=== PATIENT | male | born 1980 | race Caucasian/White ===

== ENCOUNTER → 2017-02-03 | Outpatient (CLI) | payer OTHER ==
[~2017-02-03] MED LIST: APRISO0.375 GM PO; DELTASONE20 MG PO; IMURAN50 MG PO; NORCO 5-325 TA1 EACH PO; RYTHMOL150 MG PO; THERA-VITE W/ B1 TAB PO; TYLENOL EXTRA500 MG PO; ZYRTEC-D TABLE1 EACH PO
== END | disposition disaster alternative care site (69) ==
LOC: LGSMG 16:59
DX: K50.90 Crohn's disease, unspecified, without complications (principal)

== ENCOUNTER 2017-02-04 13:49 | Inpatient (IN) | payer OTHER ==
[~2017-02-04] VITALS: Ht 182.9 cm; Wt 73.3 kg
--- NOTE | ~2017-02-04 | CON ---
PATIENT'S NAME: MURRAY DIAZ [facility] AGE: 36 Y [address] ROOM: G6319 [place], [place] [address] LOCATION: GPCU ADMIT DATE: 02/04/2017 Consultation DISCHARGE DATE: FAMILY PHYSICIAN: Aquiles Fuller MD ATTENDING PHYSICIAN: Jake Olsen REFERRING PHYSICIAN: Jake Olsen MD REASON FOR CONSULTATION: Paroxysmal atrial fibrillation. HISTORY OF PRESENT ILLNESS: This is a 36-year-old male who is post laparotomy with ileocolectomy and diverting loop ileostomy with intraabdominal abscess and free air found on CT. This is a 36-year-old male who is admitted to the [facility] on January 18, 2017. At that time, he had an acute onset of nausea. He was found to have partial obstruction with concerns for terminal ileitis and Crohn disease. He had a colonoscopy that revealed terminal ileitis, but his bowels began working, he was on steroids. He reports that his pain mildly improved, but it continued. He then followed up for a second opinion regarding Crohn disease and soreness in his abdomen. He had increasing pain that hurt with any type of movement. His white blood cell count was elevated and abdomen became very rigid. He then underwent a CT scan showing an abdominal abscess and free air. Therefore, a surgical intervention was warranted for drainage of the abscess and then the surgery that was described above. On 02/05, he was up and around, doing fairly well. He was taking ice chips and hard candy. Late in the afternoon, he noticed that his heart rate had jumped up and he could feel some palpitations. He did not have any shortness of breath with this. He denied lightheadedness or dizziness, but on assessment, he was found to have atrial fibrillation with rapid ventricular response. He was then transferred to PCU. He was given Lopressor, started on a Cardizem infusion, as well as an amiodarone drip. At 2351 hours, on 02/06/2017, he converted back to a normal sinus rhythm and continues on the amiodarone infusion. He denies having any previous episodes of palpitations like this. He denies presyncope or syncopal episodes. No shortness of breath. No orthopnea, PND, and no problems with pedal edema. PAST MEDICAL HISTORY: Paroxysmal atrial fibrillation per HPI. PAST SURGICAL HISTORY: 02/05/2017, laparotomy with ileocolectomy and diverting loop ileostomy with intraabdominal abscess drainage. SOCIAL HISTORY: He drinks about 2 beers a day. He is a nonsmoker. He is not . He does not have children. PATIENT'S NAME: MURRAY DIAZ [facility] AGE: 36 Y [address] ROOM: [facility] [place] [address] LOCATION: GPCU ADMIT DATE: 02/04/2017 Consultation DISCHARGE DATE: FAMILY PHYSICIAN: Aquiles Fuller MD ATTENDING PHYSICIAN: Jake Olsen FAMILY HISTORY: Mother and father are alive and well. REVIEW OF SYSTEMS: HEENT: Head: No history of headache. Eyes: No blurred vision. Ears: No problems with hearing. Nose: No epistaxis or rhinorrhea. He currently has an NG down and complaining of severe sore throat. PULMONARY: No cough or hemoptysis. GASTROINTESTINAL: Per HPI. No problems with melena. GENITOURINARY: Negative for urinary frequency or urgency. MUSCULOSKELETAL: No complaints of arthralgias or myalgias. NEUROLOGIC: Denies numbness or tingling or feelings of off balance. PHYSICAL EXAMINATION: VITAL SIGNS: He is 6 feet tall, weight is 174 pounds with a BMI of 23.6. He has an NG down the right nares. He also has O2 on. SKIN: Warm, dry, and pink. NECK: Soft and supple. There is no lymphadenopathy. CV: Regular now with a normal S1 and S2. There is no murmur, rub, or click. LUNGS: Lung sounds are clear anteriorly and posteriorly, but diminished. ABDOMEN: Slightly distended. Very hypoactive bowel sounds. He does have a loop ileostomy and dressings are dry and intact. EXTREMITIES: No peripheral edema. Distal pulses are 2+/4. NEUROLOGIC: His mentation is pleasant and cooperative. LABORATORY DATA: White count 16.7, hemoglobin 11.3, hematocrit 35.3, and his platelets 168. Glucose 131, BUN 18, creatinine 0.9, sodium 135, and potassium 4.3. ESR was 38. His UA showed no infection. ASSESSMENT: Paroxysmal atrial fibrillation. We are going to continue him on the amiodarone infusion. Check an echocardiogram as well as a TSH and further recommendations will be forthcoming. The assessment and plan, history of present illness, and physical exam are per Dr. Sylvester. We would like to thank Dr. Jake Olsen and the hospitalist for allowing us to participate in the patient's care. JENNIFFER THOMAS APRN FOR SHAYY SYLVESTER MD PATIENT'S NAME: MURRAY DIAZ [facility] AGE: 36 Y [address] ROOM: [place] [address] [facility] AD[facility] DATE: 02/04/2017 Consultation DISCHARGE DATE: FAMILY PHYSICIAN: Aquiles Fuller MD ATTENDING PHYSICIAN: Jake OlsenP/letitial /[id number] d: 02/07/171999 t: 02/23/17 1011, CONSULTATION REPORT
--- NOTE | ~2017-02-04 | ER ---
PATIENT'S NAME: MURRAY DIAZ [facility] AGE: 36 Y [address] ROOM: [address] [address] LOCATION: [facility] ADMIT DATE: 02/04/2017 ER/Outpatient Report DISCHARGE DATE: FAMILY PHYSICIAN: PHYSICIAN, UNKNOWN ATTENDING PHYSICIAN: Jake Olsen Time of Patient's Arrival: 1349 hours. Time of Patient's Evaluation: 1349 hours. CHIEF COMPLAINT: Abdominal pain. HISTORY OF PRESENT ILLNESS: This is a 36-year-old male who presents to the ER via [facility] with severe abdominal pain. The patient states he has been having abdominal pain since December. He was evaluated at [facility] and was ultimately hospitalized there at the end of December and was diagnosed with Crohn's. He states that they did CAT scans there and he did have a colonoscopy done by Dr. Taylor. He states that he did not care for him, so he decided to be seen by Kaity Carr and he did see her yesterday. He states that she did have some blood work done yesterday and they started him on some new medication, called Apriso. He states he has been on prednisone since his admission to the hospital and he just decreased his prednisone down to 50 mg a day on Wednesday. He states his abdominal pain started to worsen yesterday and they were waiting prior authorization for another CAT scan to be done. He states he was at work today and his pain got so severe, he felt like he was going to pass out. He does not believe he has been running any fevers at home. He feels nauseated, he has had no vomiting. He did have a bowel movement today, that was normal. He has had no troubles with urination. He states he has no has no other history other than this recent Crohn's diagnosis. ALLERGIES: NO KNOWN ALLERGIES. MEDICATIONS: Please see medication list in nurse's notes. PAST MEDICAL HISTORY: Recent diagnosis of Crohn disease and recent hospitalization at [facility]. SOCIAL HISTORY: Drinks alcohol, a couple of beers a day. Denies any smoking use. REVIEW OF SYSTEMS: All systems were reviewed and were negative with the exception of those PATIENT'S NAME: MURRAY DIAZ [facility] AGE: 36 Y [address] ROOM: [address]32[address] [place], [place] [address] LOCATION: [facility] ADMIT DATE: 02/04/2017 ER/Outpatient Report DISCHARGE DATE: FAMILY PHYSICIAN: PHYSICIAN, UNKNOWN ATTENDING PHYSICIAN: Jake Olsen discussed in the HPI. PHYSICAL EXAMINATION: VITAL SIGNS: Height 6 feet stated, weight 78.9 kg taken, blood pressure is 154/105, pulse 103, respirations 18, temperature 99.5 degrees tympanically, and saturations 93% on room air. [place] Coma Score is 15. GENERAL: Alert, anxious-appearing male, in moderate to severe distress. HEENT: Head: Normocephalic. He does display moist mucous membranes. Eyes: Pupils are equal and reactive to light. NECK: Supple. No lymphadenopathy. LUNGS: Clear auscultation bilaterally. HEART: Slightly tachycardic. Normal rhythm. ABDOMEN: Rigid. He guards in all 4 quadrants of his abdomen with palpation. He has hypoactive bowel sounds. EXTREMITIES: No clubbing or cyanosis. He has full range of motion of all limbs. SKIN: Warm, dry, and intact. NEUROLOGIC: Cranial nerves 2 through 12 grossly intact. Gait was not observed. LABORATORY DATA: CBC: White count is 22.8, hemoglobin is 15.7, platelets are 330, and ANC is 18.7. CMS: Sodium is 137, potassium is 4.4, glucose is 143, AST is 135, alkaline phosphatase is 91, ALT is 259, amylase is 49, lipase is 91, CRP is 22.50, and lactate is 2.10. Urinalysis: He does have bilirubin noted on urinalysis. UA micro: White blood cells 5-10, red blood cells 0-2, epithelial 0-2 bacteria negative. Two blood cultures were drawn. CT scan of the abdomen and pelvis was done with IV contrast and does show a large 7-cm abscess in the abdomen, this is reported to Radiology. IMPRESSION: 1. Abdominal pain secondary to abdominal abscess. 2. Recent diagnosis of Crohn disease. ASSESSMENT AND PLAN: I did discuss the patient's care with Dr. You. The patient did have an IV started en route from [facility]. We did continue the normal saline here in the emergency room that they started. We did give him 4 mg of Zofran and a total of 3 mg of Dilaudid here in the ER. Once his CAT scan diagnosis was made, we did start him on Zosyn 4.5 g IV, and we did call Dr. Jake Olsen who is on-call for surgery and he will be coming to evaluate the patient here in the emergency room. I also notified Kaity Carr APRN, as the patient was also in the emergency room. We will be turning the care over to Dr. Olsen at this time. The patient and the patient's understand and agree with care. PATIENT'S NAME: MURRAY DIAZ [facility] AGE: 36 Y [address] ROOM: [place] [address] LOCATION: [facility] ADMIT DATE: 02/04/2017 ER/Outpatient Report DISCHARGE DATE: FAMILY PHYSICIAN: PHYSICIAN, UNKNOWN ATTENDING PHYSICIAN: Jake Olsen JOSE DEL VALLE PA-C FOR DO MARYCRUZ HANCOCK/modl /[id number] d: 02/05/17 0139 t: 02/18/17 0644, OUTPATIENT REPORT
--- NOTE | ~2017-02-04 | HP ---
PATIENT'S NAME: BOY DIAZ [facility] AGE: 36 Y [address] ROOM: [facility] [place] [place] [address] LOCATION: [facility] [place] ADMIT DATE: 02/04/2017 History & Physical DISCHARGE DATE: FAMILY PHYSICIAN: PHYSICIAN, UNKNOWN ATTENDING PHYSICIAN: Jake Olsen DATE OF SERVICE: CHIEF COMPLAINT: Abdominal pain. HISTORY OF PRESENT ILLNESS: The patient is a 36-year-old male, who was admitted to [facility] on January 18, 2017. At that time, he had acute onset of pain with nausea. He was found to have a partial obstruction with concerns for terminal ileitis and Crohn disease, this was by CT. He had a colonoscopy that revealed terminal ileitis, but his bowels began working. He was on steroids. He had mild improvement in his pain. He went to [facility] yesterday to have second opinion regarding his Crohn disease, had soreness in his abdomen, but was able to function. He was having bowel movements. No nausea or vomiting. However, last night and early this morning, began having severe abdominal pain which has been worsening throughout the day. He says it hurts with any movement. He was seen, [place] [address], was felt that his abdomen was rigid. He did have a CT scan that does reveal intraabdominal abscess and thickened terminal ilium. There also is free air present. CURRENT MEDICATIONS: Prednisone. ALLERGIES: NONE. PAST SURGICAL HISTORY: None. SOCIAL HISTORY: He drinks two beers a day, nonsmoker. He is not . FAMILY HISTORY: No history of Crohn's or any other type of bowel cancers. There is some remote history of coronary artery disease. REVIEW OF SYSTEMS: Denies headache or vision change. No chest pain. No shortness of breath. No PATIENT'S NAME: BOY DIAZ [facility] AGE: 36 Y [address] ROOM: [facility] [place] [place], [place] [address] LOCATION: [facility] [place] ADMIT DATE: 02/04/2017 History & Physical DISCHARGE DATE: FAMILY PHYSICIAN: PHYSICIAN, UNKNOWN ATTENDING PHYSICIAN: Jake Olsen melena. No hematochezia. No hematuria or dysuria. No diarrhea. He has no history of diabetes or hyper or hypothyroidism. PHYSICAL EXAMINATION: HEENT: Head is normocephalic, atraumatic. Eyes are anicteric. NECK: Without lymphadenopathy. HEART: Regular rate and rhythm. LUNGS: Clear to auscultation bilaterally. ABDOMEN: Rigid with involuntary guarding and rebound tenderness. EXTREMITIES: Warm. No edema. NEUROLOGIC: Gross motor is intact. ASSESSMENT: 1. Peritonitis with abdominal abscess and perforation. 2. History of Crohn's. PLAN: Discussed the findings with Boy. Initially with a CT scan before I evaluated him, I thought this was likely more of a slowly developing abscess, however, he had this episode of acute pain. I suspect that he has had this abscess for several days, but has developed some further perforation as he does have an acute abdomen. Because of this, I feel like a surgical intervention is warranted. I discussed with him drainage of this abscess, possible ileal colectomy with anastomosis, risks with Crohn's being bleeding, infection, stricture formation, fistulas. We discussed injury to other viscera, wound infections, as well as other wound complications. He understands the risks of surgery and would like to proceed. Lab and CTs have all been reviewed. MD DENNY DELGADO/jackie /[id number] D: [id number] T: [id number] HISTORY & PHYSICAL
--- NOTE | ~2017-02-04 | DS ---
PATIENT'S NAME: MURRAY DIAZ [facility] AGE: 36 Y [address] ROOM: [address] [place], [place] [address] LOCATION: GPCU ADMIT DATE: 02/04/2017 Discharge Summary DISCHARGE DATE: 02/16/2017 FAMILY PHYSICIAN: Aquiles Fuller MD ATTENDING PHYSICIAN: Jake Olsen ADMITTING DIAGNOSES: 1. Perforated viscus with sepsis. 2. Crohn's disease. DISCHARGE DIAGNOSES: 1. Perforated viscus and abscess. 2. Crohn's disease. 3. Atrial fibrillation. HOSPITAL COURSE: The patient presented with an acute abdomen and was found to have perforated viscus abscess. He had carried a diagnosis of Crohn's disease. He had a laparotomy with ileocolectomy performed diverting loop ileostomy. He had a prolonged ileus. Postoperatively, he was maintained on IV antibiotics. Slowly, his ileus resolved, he did develop atrial fibrillation, which was controlled. Cardiology, Dr. Walsh was consulted in regarding this. He was able to be converted with amiodarone. Over the next week, he had slow improvement; ultimately, bowels began functioning, and we were able to slowly advance his diet. He did have a bout of fevers with increasing white count; however, with repeat CT, no abscess was present. Gastroenterology was also following the patient with plans for outpatient followup. He was able to be discharged to home. He had follow up with Dr. Walsh, Gastroenterology, as well as Dr. Olsen. MD RITIKA DELGADOO/modl /[id number] d: 02/19/17 0204 t: 03/04/17 0854, DISCHARGE SUMMARY
--- NOTE | ~2017-02-04 | CON ---
PATIENT'S NAME: MURRAY DIAZ [facility] AGE: 36 Y [address] ROOM: [place] [address] LOCATION: GPCU ADMIT DATE: 02/04/2017 Consultation DISCHARGE DATE: FAMILY PHYSICIAN: Aquiles Fuller MD ATTENDING PHYSICIAN: Jake Olsen CHIEF COMPLAINT: Atrial fibrillation with RVR. HISTORY OF PRESENT ILLNESS: The patient is a 36-year-old gentleman with recent history of Crohn disease with perforated viscus with abscess, who was initially admitted on February 04, 2017, for laparotomy with ileocolectomy with diverting loop ileostomy. The patient tolerated the surgery well. The patient was started on enteric antibiotic with Flagyl and Zosyn. However, the patient was noted to be with atrial fibrillation RVR today with heart rate in the 180s-190s. CT chest was acquired per primary team, which showed no PE. Upon our initial assessment of the patient, the patient was noted to have heart rate in the 180s-190s with labile blood pressure and systolic blood pressure in the low 100s. The patient was immediately transferred to PCU from Medical Surgical Unit. The patient was placed in PCU, and defibrillator pad was placed. The patient was placed on telemonitor. The patient was given 5 mg IV Lopressor with improvement in the heart rates in the 130s-140s. The patient was also given Cardizem 0.25 mg/kg bolus with adequate improvement of heart rate. The patient now started on Cardizem drip and amiodarone. The patient reports that he felt his heart racing this afternoon, and denies having these symptoms in the past. He currently complains of ongoing abdominal pain, especially around the surgical site. Denies chest pain, shortness of breath, fever, chills, productive cough, and dizziness. MEDICAL HISTORY: Crohn disease. SURGICAL HISTORY: Ileocolectomy with diverting loop ileostomy. FAMILY HISTORY: Reports that both his parents are healthy. 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 Rarely drinks alcohol. MEDICATIONS: Please see MAR. REVIEW OF SYSTEMS: PATIENT'S NAME: MURRAY DIAZ [facility] AGE: 36 Y [address] ROOM: [place] [address] LOCATION: GPCU ADMIT DATE: 02/04/2017 Consultation DISCHARGE DATE: FAMILY PHYSICIAN: Aquiles Fuller MD ATTENDING PHYSICIAN: Jake Olsen All systems have been reviewed and are negative, except for what I mentioned in the HPI. PHYSICAL EXAMINATION: VITAL SIGNS: Blood pressure 103/69, heart rate of 125, respiratory rate of 16, saturating 95% on 1 L. GENERAL: The patient lying on bed in no acute distress. HEAD: Normocephalic, atraumatic. EYES: Extraocular muscles intact. NOSE: No nasal discharge. MOUTH: Moist oral mucosa. CHEST: Clear to auscultation. HEART: Irregularly irregular. No murmurs, rubs, or gallops. ABDOMEN: Surgical dressing clean, dry, and intact. Mild tenderness to palpation, diffuse. Ileostomy bag present. SKIN: Warm to touch. MUSCULOSKELETAL: Range of motion intact. No obvious joint effusion. ELECTRIC CAR OPERATOR: The patient is alert and oriented x3. Motor and sensory grossly intact. IMAGING: Initial EKG shows atrial fibrillation with RVR with heart rate of 169. The second EKG, after Cardizem and Lopressor dose, shows atrial fibrillation with RVR with heart rate in 101 and some nonspecific repolarization changes. CT shows no PE. LABORATORY DATA: Lab shows white blood cell count of 16.7, hemoglobin of 11.3, and platelet of 168. Potassium 4.3, creatinine of 0.9, BUN of 18, blood glucose of 131, and CO2 of 28. ASSESSMENT AND PLAN: 1. Atrial fibrillation with rapid ventricular response. Etiology most likely secondary to recent history of surgery and infection. I suspect this to be transient. Initially, the patient had atrial fibrillation with RVR with heart rate in the 180s-190s with labile blood pressure and the patient was somewhat symptomatic; however, improved with Lopressor, IV fluids, and Cardizem. We will continue Cardizem drip. We will start amiodarone drip 150 mg IV bolus and start amiodarone drip per protocol. If the patient converts back to normal sinus rhythm, we will discontinue Cardizem drip. Case was discussed with Dr. Walsh. We will consult Cardiology. We will also get echocardiogram to further investigate for structural heart disease. The patient has XOCHILT-VASc score of zero. We PATIENT'S NAME: MURRAY DIAZ [facility] AGE: 36 Y [address] ROOM: [address] [place] [address] [facility] DATE: 02/04/2017 Consultation DISCHARGE DATE: FAMILY PHYSICIAN: Aquiles Fuller MD ATTENDING PHYSICIAN: Jake Olsen will hold anticoagulation. 2. Perforated viscus, secondary to Crohn disease. Treatment per primary team. 3. Crohn disease. Treatment per primary time. Greater than 30 minutes critical care was spent on the patient's care. The patient initially was in atrial fibrillation with RVR with heart rates in the 190s and labile blood pressure, and the patient was somewhat symptomatic. However, the patient now stabilized after Lopressor, Cardizem, and IV fluids. Discussed case with Dr. Grove with General Surgery and Dr. Walsh in Cardiology. Case was also discussed with the patient and . All questions were answered with satisfaction. MD PEDRITO MARTIN/jackie /[id number] d: 02/07/17 0028 t: 02/07/17 1234, CONSULTATION REPORT
--- NOTE | ~2017-02-04 | ECHO ---
Transthoracic Echocardiography Report (TTE) Demographics Patient Name MURRAY DIAZ Date of Study 02/07/2017 Patient Number [id number] Visit Number [id number] Date of 1980 Room Number G6319 Gender Male Number Age 36 year(s) Referring Alina Lopez Garment Manufacturer Samuel RVT, RDCS Physician MD [place] Physician Interpreting Nico Hinds MD Shoemaker Custom Physician Supervising Ordering Nico Hinds MD, MD/MLP Physician Nurse Stress Machine Repairer Conclusions Contractility Score Summary Normal Left Ventricular contractility was noted. Summary The estimated left ventricular ejection fraction is 65, 60-65%. Mild tricuspid regurgitation by color Doppler. There is mild pulmonary hypertension. The pulmonary pressure (RVSP) is 37 mmHg. Procedure Type of Study TTE procedure:2D Echocardiogram, M-Mode, Doppler , Color Doppler. Procedure Date Date: 02/07/2017 Start: 08:02 AM Study Location: Inpatient Portable Technical Quality: Adequate visualization Indications:Atrial fibrillation. Appropriate Use Criteria: 9 Patient Status: Routine HR: 73 bpm BP: 110/70 mmHg M-Mode/2D Measurements LV Diastolic Dimension: 4.3 cm LV Systolic Dimension: 2.13 cm LV Septum Diastolic: 0.96 cm LV PW Diastolic: 0.85 cm AO Root Dimension: 2.4 cm Cardiac Output: 4.68 l/min AV Cusp Separation: 1.8 cm RV Diastolic Dimension: 2.03 cm LA volume: 32 ml LVOT: 2 cm RV Base: 2.31 cm LVOT VTI: 20.4 cm RV Mid: 2.34 cm LV Stroke volume: 64.06 ml TAPSE: 2.6 cm TDI-S': 17.3 cm/s Doppler Measurements AV Peak Velocity: 1.21 m/s MV Peak E-Wave: 1.03 m/s AV Peak Gradient: 5.86 mmHg MV Peak A-Wave: 0.5 m/s AV Mean Gradient: 4 mmHg MV E/A Ratio: 2.06 LVOT Peak Velocity: 0.97 m/s MV P1/2t: 55 msec TR Gradient:33.64 mmHg PV Peak Velocity: 0.99 m/s Estimated RAP:3 mmHg PV Peak Gradient: 3.89 mmHg Estimated RVSP: 37 mmHg Estimated PASP: 36.64 mmHg E' Septal Velocity: 0.12 m/s A' Septal Velocity: 0.12 m/s E' Lateral Velocity: 0.17 m/s A' Lateral Velocity: 0.12 m/s Findings Left Ventricle Normal left ventricle size and function. Right Ventricle Normal right ventricle structure and function. Left Atrium Normal left atrial size. Right Atrium Normal right atrial size. Mitral Valve Normal mitral valve structure and function. Tricuspid Valve Mild tricuspid regurgitation by color Doppler. There is mild pulmonary hypertension. The pulmonary pressure (RVSP) is 37 mmHg. Pulmonic Valve Normal pulmonic valve structure and function. Pericardial Effusion No evidence of pericardial effusion. Pleural Effusion No evidence of pleural effusion. Contractility Score LV regional wall motion:(0-Non visualized 1-Normal 2-Hypokinesis 3-Akinesis 4-Dyskinesis 5-Aneurysm) Signature dtt: Guzman Walsh (cardio) dtd: 02/07/17 0802 Physician Self Edit
--- NOTE | ~2017-02-04 | OR ---
PATIENT'S NAME: M[facility]RAY DIAZ [facility] AGE: 36 Y [address] ROOM: [address] [address] [place] [facility] [place]: 02/04/2017 OR/Procedure Report DISCHARGE DATE: FAMILY PHYSICIAN: PHYSICIAN, UNKNOWN ATTENDING PHYSICIAN: Jake Oslen SURGEON: Jake Olsen MD PHONE REPRESENTATIVE: DATE OF PROCEDURE: 02/04/2017 PREOPERATIVE DIAGNOSIS: Perforated viscus with abscess. POSTOPERATIVE DIAGNOSIS: Perforated viscus with abscess. PROCEDURE PERFORMED: Laparotomy with ileocolectomy and diverting loop ileostomy. FINDINGS: The patient had purulent peritonitis with a very large abscess. The terminal ileum was very thickened. It was difficult to identify the exact source of perforation, however, the proximal to this area the bowel was relatively normal. The abscess also sat near the sigmoid colon. However, the sigmoid colon did not reveal perforation either. ESTIMATED BLOOD LOSS: 200 mL. COMPLICATIONS: None. INDICATIONS: The patient is a 36-year-old male, who recently had been admitted with partial bowel obstruction. He was treated with steroids. He also had a colonoscopy concerning for terminal ileitis. Biopsies of this had been obtained. He had had worsening pain, but then this became acute. Today, he was found to have free air and signs of peritonitis. Because of this, we discussed exploration with the patient, the risks, benefits, and alternatives, which include bleeding, infection, abscess formation, potential resection, and potential ostomy. He understood the risks and elected to proceed. DESCRIPTION OF PROCEDURE: The patient was taken into the operating room. He was supine, given IV sedation and subsequently intubated. His abdomen was prepped with ChloraPrep, and sterilely draped. Local anesthetic was infiltrated superior to the umbilicus. A vertical incision was created. The abdomen was elevated. A Veress needle was inserted. Pneumoperitoneum was induced. Following this, an 11-mm trocar was inserted, followed by insertion of the camera. There was no injury from initial trocar placement. There was purulent peritonitis present with large pockets of purulent material throughout the abdomen. The peritoneum was very irritated. The small bowel loops were very adherent to one another and extremely adherent into the PATIENT'S NAME: MURRAY DIAZ [facility] AGE: 36 Y [address] ROOM: [id number] [place], [place] [id number] LOCATION: [facility] [place] DATE: 02/04/2017 OR/Procedure Report DISCHARGE DATE: FAMILY PHYSICIAN: PHYSICIAN, UNKNOWN ATTENDING PHYSICIAN: Jake Olsen pelvis. With two more trocars were positioned, these were 5-mm trocars inserted in the left abdomen, we inserted graspers, attempted to suction fluid. However, with the way the bowel was fixed down to the pelvis, ultimately we elected to convert to laparotomy, vertical midline incision was created, carried through subcutaneous tissues using electrocautery. The linea alba was incised. The abdominal cavity entered and Miguel wound protector was placed. We suctioned the abdominal cavity. It was difficult to mobilize the small bowel as the loops were very adherent, difficult to separate the bowel from the sigmoid colon. There was a very large abscess present, this was opened. We suctioned this from the abdominal cavity and contained it as well as we could. However, the entire abdomen was very contaminated. We had a difficult time mobilizing the terminal ileum due to the amount of inflammatory change surrounding this. The mesentery was very edematous. Ultimately, we were able to mobilize this. Mobilized the rest of the small bowel. We copiously irrigated the abdominal cavity. The terminal ileum was quite thickened and sick. With this, however, we attempted to locate the exact perforation, which we never could accomplish. We examined the sigmoid colon where this area abscess was. This did not appear to be the source, however, the mesentery in this area was quite inflamed as well, but the bowel lumen itself revealed no significant abnormalities. Ultimately, we felt the terminal ileum was the cause. We resected this very thickened terminal ileum up to where the bowel appeared relatively healthy although all the bowel was somewhat inflamed secondary to his peritonitis. We attempted to leave as much small bowel as possible. Once we selected our proximal site of resection, we divided the mesentery up towards the cecum. This was inflamed throughout this entire area. The colon itself appeared relatively normal without inflammatory change. We mobilized the right colon medially using electrocautery. The right colon was divided with the KRISTOPHER stapler. The mesentery had been divided up to this point. The abdominal cavity was then copiously irrigated. Fluid was removed. It appeared hemostatic. No other source of perforation or other significant abnormalities were identified. We placed the bowel in a side-to- side fashion. Enterotomy and colotomy were created. KRISTOPHER stapler was inserted and fired. A TA stapler was used to close the enterotomy and colotomy. The suture line was reinforced with 3-0 silk suture. The operative field again was inspected. It appeared hemostatic. We further irrigated the abdomen and suctioned the fluid from the abdominal cavity. With the amount of contamination present, the diagnosis of Crohn's as well as his steroid use, we elected to perform a diverting loop ileostomy. We selected the small bowel. A disk of skin was removed from the right anterior abdominal wall. This was carried through the subcutaneous tissues and down through the fascia using electrocautery. A loop of small bowel was brought out through this incision. Sutures were placed to hold this at the fascia level. The abdominal cavity was again explored. Hemostasis had been obtained. A 15-Slovak round drain was placed in the pelvis and brought out through one of our laparoscopic incisions. This was sewn into place. A midline fascia was closed with PATIENT'S NAME: MURRAY DIAZ [facility] AGE: 36 Y [address] ROOM: [place] [id number] LOCATION: [facility] [place] DATE: 02/04/2017 OR/Procedure Report DISCHARGE DATE: FAMILY PHYSICIAN: PHYSICIAN, UNKNOWN ATTENDING PHYSICIAN: Jake Olsen interrupted 0 PDS suture. Subcutaneous tissues were copiously irrigated and skin was approximated with noni. We then matured the loop ileostomy. We had left a Wendie drain for a bridge. This was sewn to the skin to help hold the ileostomy in place. The ileostomy was matured with 3-0 Vicryl suture. The ostomy appliance was placed and sterile dressings. The patient was extubated and sent to recovery. COUNT RESULTS: Sponge, needle, and instrument counts were reported as correct. MD DENNY DELGADO/jackie /[id number] d: 02/05/170 t: 02/18/17 1937, OPERATIVE SUMMARY
[2017-02-04 14:08] LABS: BASOPHIL # 0.1 K/uL (0.0-0.2); BASOPHIL % 0.4 %; HEMATOCRIT 47.8 % (37.0-53.0); HEMOGLOBIN 15.7 g/dL (12.0-17.0); IMMATURE GRANULOCYTE # 0.7 K/uL (0.0-0.3); IMMATURE GRANULOCYTE % 3.1 %; LYMPHOCYTE # 1.4 K/uL (0.8-4.0); LYMPHOCYTE % 6.1 %; MCH 28.6 pg (27.0-34.0); MCHC 32.8 gm/dL (32.0-36.5); MCV 87.1 fl (83.0-98.0); MONOCYTE # 1.9 K/uL (0.0-1.0); MONOCYTE % 8.3 %; MPV 9.8 fl (9.4-12.4); NEUTROPHIL # (ANC) 18.7 K/uL (1.4-9.0); NEUTROPHIL % 82.1 %; NRBC % 0 /100WBC (0-0.00); PLATELET COUNT 330 K/uL (150-450); RBC 5.49 M/uL (4.00-6.00); RDW-CV 13.8 % (11.9-14.6); WBC 22.8 K/uL (4.0-11.0)
[2017-02-04 14:22] LABS: ALBUMIN 2.7 gm/dL (3.5-5.0); ANION GAP 10.4 (10.0-19.0); CALCIUM 8.1 mg/dL (8.5-10.5); CREATININE 1.1 mg/dL (0.6-1.3); POTASSIUM 4.4 mMol/L (3.7-5.1); TOTAL BILIRUBIN 1.2 mg/dL (0.0-1.5); TOTAL PROTEIN 6.9 g/dL (6.0-8.4)
[2017-02-04 14:59] LABS: BLOOD URINE 10 /UL (NEGATIVE); GLUCOSE URINE 50 mg/dL (NEGATIVE); KETONE URINE 5 mg/dL (NEGATIVE); LEUKOCYTES URINE 25 /UL (NEGATIVE); NITRITE URINE NEGATIVE (NEGATIVE); PROTEIN URINE 30 mg/dL (NEGATIVE); SPEC GRAVITY URINE 1.025 (1.003-1.035); TURBIDITY URINE 1+ (CLEAR); UROBILINOGEN URINE 8 mg/dL (NORMAL)
[2017-02-04 15:02] LABS: COLOR URINE AMBER (YELLOW)
[2017-02-04 15:08] LABS: RBC URINE 0-2 #/HPF (NEGATIVE)
[2017-02-04 15:09] LABS: BACTERIA URINE NEGATIVE (NEGATIVE); EPITHELIAL URINE 0-2 #/HPF (NEGATIVE); HYALINE CAST URINE 0-2 #/LPF (NEGATIVE); MUCUS URINE 3+ (NEGATIVE)
[2017-02-05 04:32] LABS: HEMATOCRIT 43.1 % (37.0-53.0); HEMOGLOBIN 14.1 g/dL (12.0-17.0); MCH 28.3 pg (27.0-34.0); MCHC 32.7 gm/dL (32.0-36.5); MCV 86.4 fl (83.0-98.0); RBC 4.99 M/uL (4.00-6.00); RDW-CV 14.2 % (11.9-14.6); WBC 10.1 K/uL (4.0-11.0)
[2017-02-05 04:38] LABS: PLATELET COUNT 225 K/uL (150-450)
[2017-02-05 04:47] LABS: ANION GAP 10.3 (10.0-19.0); POTASSIUM 4.3 mMol/L (3.7-5.1)
[2017-02-05 06:15] LABS: ABSOLUTE NEUTROPHIL CT (ANC) 8.4 K/uL (1.4-9.0); BANDED NEUTROPHIL # 5.3 K/uL (0.0-0.1); BANDED NEUTROPHILS % 52 %; LYMPHOCYTE # 1.3 K/uL (0.8-4.0); LYMPHOCYTE % 13 %; MONOCYTE # 0.4 K/uL (0.0-1.0); SEGMENTED NEUTROPHIL # 3.1 K/uL (1.4-9.0); SEGMENTED NEUTROPHIL % 31 %
[2017-02-05] MEDS ORDERED: APRISO0.375 GM PO (07:56)
[2017-02-05] MEDS ORDERED: DELTASONE20 MG PO (07:59)
[2017-02-05] MEDS ORDERED: TYLENOL EXTRA500 MG PO (08:00)
[2017-02-05] MEDS ORDERED: THERA-VITE W/ B1 TAB PO (08:00)
[2017-02-05] MEDS ORDERED: ZYRTEC-D TABLE1 EACH PO (08:00)
[2017-02-06 05:10] LABS: HEMATOCRIT 35.3 % (37.0-53.0); HEMOGLOBIN 11.3 g/dL (12.0-17.0); MCH 27.8 pg (27.0-34.0); MCV 86.7 fl (83.0-98.0); MPV 10.1 fl (9.4-12.4); RBC 4.07 M/uL (4.00-6.00); RDW-CV 13.9 % (11.9-14.6)
[2017-02-06 05:12] LABS: PLATELET COUNT 168 K/uL (150-450); WBC 16.7 K/uL (4.0-11.0)
[2017-02-06 05:24] LABS: ANION GAP 9.3 (10.0-19.0); BLOOD UREA NITROGEN 18 mg/dL (6-24); CALCIUM 7.5 mg/dL (8.5-10.5); CHLORIDE 102 mMol/L (96-110); CO2 28 mMol/L (22-32); CREATININE 0.9 mg/dL (0.6-1.3); POTASSIUM 4.3 mMol/L (3.7-5.1); SODIUM 135 mMol/L (135-145)
[2017-02-06 05:25] LABS: ALBUMIN 1.9 gm/dL (3.5-5.0); PHOSPHORUS 1.4 mg/dL (2.5-4.9)
[2017-02-06 06:11] LABS: ABSOLUTE NEUTROPHIL CT (ANC) 15.2 K/uL (1.4-9.0); BANDED NEUTROPHIL # 8.2 K/uL (0.0-0.1); BANDED NEUTROPHILS % 49 %; LYMPHOCYTE # 0.7 K/uL (0.8-4.0); LYMPHOCYTE % 4 %; SEGMENTED NEUTROPHIL % 42 %
[2017-02-08 04:25] LABS: BASOPHIL % 0.1 %; EOSINOPHIL # 0.1 K/uL (0.0-0.5); EOSINOPHIL % 0.6 %; HEMATOCRIT 30.3 % (37.0-53.0); HEMOGLOBIN 10.3 g/dL (12.0-17.0); IMMATURE GRANULOCYTE # 0.3 K/uL (0.0-0.3); LYMPHOCYTE # 0.8 K/uL (0.8-4.0); LYMPHOCYTE % 5.7 %; MCH 28.4 pg (27.0-34.0); MCV 83.5 fl (83.0-98.0); MONOCYTE # 0.9 K/uL (0.0-1.0); MONOCYTE % 6.7 %; NEUTROPHIL # (ANC) 11.7 K/uL (1.4-9.0); NEUTROPHIL % 84.9 %; NRBC % 0 /100WBC (0-0.00); RBC 3.63 M/uL (4.00-6.00); RDW-CV 13.8 % (11.9-14.6); WBC 13.8 K/uL (4.0-11.0)
[2017-02-08 04:26] LABS: PLATELET COUNT 210 K/uL (150-450)
[2017-02-08 04:41] LABS: ALK PHOS 114 IU/L (33-138); ALT 141 IU/L (12-78); AST 133 IU/L (10-40); BLOOD UREA NITROGEN 12 mg/dL (6-24); CALCIUM 7.5 mg/dL (8.5-10.5); CHLORIDE 102 mMol/L (96-110); CO2 24 mMol/L (22-32); CREATININE 0.7 mg/dL (0.6-1.3); SODIUM 134 mMol/L (135-145); TOTAL BILIRUBIN 1.1 mg/dL (0.0-1.5); TOTAL PROTEIN 5.6 g/dL (6.0-8.4)
[2017-02-08 04:42] LABS: ALBUMIN 1.9 gm/dL (3.5-5.0)
[2017-02-09 13:06] LABS: HEMATOCRIT 31.3 % (37.0-53.0); HEMOGLOBIN 10.8 g/dL (12.0-17.0)
[2017-02-10 03:49] LABS: ANION GAP 10.9 (10.0-19.0); BLOOD UREA NITROGEN 11 mg/dL (6-24); CALCIUM 7.5 mg/dL (8.5-10.5); CHLORIDE 103 mMol/L (96-110); CO2 26 mMol/L (22-32); CREATININE 0.7 mg/dL (0.6-1.3); MAGNESIUM 2.2 mg/dL (1.8-2.6); PHOSPHORUS 2.8 mg/dL (2.5-4.9); POTASSIUM 3.9 mMol/L (3.7-5.1); SODIUM 136 mMol/L (135-145)
[2017-02-10 04:00] LABS: ALBUMIN 1.7 gm/dL (3.5-5.0)
[2017-02-10 04:12] LABS: HEMATOCRIT 28.3 % (37.0-53.0); HEMOGLOBIN 9.6 g/dL (12.0-17.0); MCH 28.3 pg (27.0-34.0); MCHC 33.9 gm/dL (32.0-36.5); MCV 83.5 fl (83.0-98.0); RBC 3.39 M/uL (4.00-6.00); RDW-CV 14.2 % (11.9-14.6); WBC 13.8 K/uL (4.0-11.0)
[2017-02-10 04:14] LABS: PLATELET COUNT 336 K/uL (150-450)
[2017-02-10 05:05] LABS: ABSOLUTE NEUTROPHIL CT (ANC) 11.3 K/uL (1.4-9.0); BANDED NEUTROPHIL # 1.2 K/uL (0.0-0.1); BANDED NEUTROPHILS % 9 %; LYMPHOCYTE # 1.1 K/uL (0.8-4.0); LYMPHOCYTE % 8 %; MONOCYTE # 0.4 K/uL (0.0-1.0); SEGMENTED NEUTROPHIL # 10.1 K/uL (1.4-9.0); SEGMENTED NEUTROPHIL % 73 %
[2017-02-11 07:24] LABS: ANION GAP 11.6 (10.0-19.0); CHLORIDE 101 mMol/L (96-110); CO2 25 mMol/L (22-32); SODIUM 134 mMol/L (135-145)
[2017-02-11 07:25] LABS: ALBUMIN 1.7 gm/dL (3.5-5.0); BLOOD UREA NITROGEN 7 mg/dL (6-24); CREATININE 0.6 mg/dL (0.6-1.3); POTASSIUM 3.6 mMol/L (3.7-5.1)
[2017-02-11 07:26] LABS: PHOSPHORUS 2.2 mg/dL (2.5-4.9)
[2017-02-11 07:29] LABS: HEMATOCRIT 26.2 % (37.0-53.0); HEMOGLOBIN 8.8 g/dL (12.0-17.0); MCH 28.3 pg (27.0-34.0); MCHC 33.6 gm/dL (32.0-36.5); MCV 84.2 fl (83.0-98.0); MPV 9.8 fl (9.4-12.4); RBC 3.11 M/uL (4.00-6.00); RDW-CV 14.2 % (11.9-14.6)
[2017-02-11 07:30] LABS: PLATELET COUNT 410 K/uL (150-450); WBC 16.4 K/uL (4.0-11.0)
[2017-02-11 08:14] LABS: BANDED NEUTROPHIL # 1.3 K/uL (0.0-0.1); BANDED NEUTROPHILS % 8 %; LYMPHOCYTE # 1.8 K/uL (0.8-4.0); LYMPHOCYTE % 11 %; MONOCYTE # 1.1 K/uL (0.0-1.0)
[2017-02-11 08:15] LABS: ABSOLUTE NEUTROPHIL CT (ANC) 11.8 K/uL (1.4-9.0); SEGMENTED NEUTROPHIL # 10.5 K/uL (1.4-9.0); SEGMENTED NEUTROPHIL % 64 %
[2017-02-12 06:05] LABS: ANION GAP 12.1 (10.0-19.0); BLOOD UREA NITROGEN 8 mg/dL (6-24); CALCIUM 7.7 mg/dL (8.5-10.5); CHLORIDE 102 mMol/L (96-110); CO2 26 mMol/L (22-32); CREATININE 0.7 mg/dL (0.6-1.3); PHOSPHORUS 2.5 mg/dL (2.5-4.9); POTASSIUM 4.1 mMol/L (3.7-5.1); SODIUM 136 mMol/L (135-145)
[2017-02-12 06:06] LABS: ALBUMIN 1.8 gm/dL (3.5-5.0)
[2017-02-12 06:09] LABS: HEMATOCRIT 26.7 % (37.0-53.0); HEMOGLOBIN 8.9 g/dL (12.0-17.0); MCH 28.3 pg (27.0-34.0); MCHC 33.3 gm/dL (32.0-36.5); MPV 9.8 fl (9.4-12.4); RBC 3.14 M/uL (4.00-6.00); RDW-CV 14.2 % (11.9-14.6)
[2017-02-12 06:13] LABS: PLATELET COUNT 524 K/uL (150-450); WBC 17.5 K/uL (4.0-11.0)
[2017-02-12 06:50] LABS: BANDED NEUTROPHIL # 1.2 K/uL (0.0-0.1); BANDED NEUTROPHILS % 7 %; LYMPHOCYTE # 1.4 K/uL (0.8-4.0); LYMPHOCYTE % 8 %; MONOCYTE # 0.9 K/uL (0.0-1.0); SEGMENTED NEUTROPHIL # 12.8 K/uL (1.4-9.0); SEGMENTED NEUTROPHIL % 73 %
[2017-02-13 05:33] LABS: ANION GAP 11.8 (10.0-19.0); BLOOD UREA NITROGEN 11 mg/dL (6-24); CALCIUM 7.6 mg/dL (8.5-10.5); CHLORIDE 104 mMol/L (96-110); CO2 25 mMol/L (22-32); CREATININE 0.7 mg/dL (0.6-1.3); PHOSPHORUS 2.5 mg/dL (2.5-4.9); POTASSIUM 3.8 mMol/L (3.7-5.1); SODIUM 137 mMol/L (135-145)
[2017-02-13 05:36] LABS: ALBUMIN 1.8 gm/dL (3.5-5.0)
[2017-02-13 05:58] LABS: BASOPHIL % 0.2 %; EOSINOPHIL # 0.4 K/uL (0.0-0.5); EOSINOPHIL % 2.1 %; HEMATOCRIT 25.2 % (37.0-53.0); HEMOGLOBIN 8.4 g/dL (12.0-17.0); IMMATURE GRANULOCYTE # 1.9 K/uL (0.0-0.3); IMMATURE GRANULOCYTE % 10.7 %; LYMPHOCYTE # 0.9 K/uL (0.8-4.0); LYMPHOCYTE % 5.3 %; MCH 28.6 pg (27.0-34.0); MCHC 33.3 gm/dL (32.0-36.5); MCV 85.7 fl (83.0-98.0); MONOCYTE # 1.3 K/uL (0.0-1.0); MONOCYTE % 7.1 %; MPV 9.9 fl (9.4-12.4); NEUTROPHIL # (ANC) 13.3 K/uL (1.4-9.0); NEUTROPHIL % 74.6 %; NRBC % 0 /100WBC (0-0.00); RBC 2.94 M/uL (4.00-6.00); RDW-CV 14.2 % (11.9-14.6)
[2017-02-13 05:59] LABS: PLATELET COUNT 640 K/uL (150-450); WBC 17.8 K/uL (4.0-11.0)
[2017-02-15 05:37] LABS: ANION GAP 10.8 (10.0-19.0); BLOOD UREA NITROGEN 9 mg/dL (6-24); CALCIUM 7.5 mg/dL (8.5-10.5); CHLORIDE 106 mMol/L (96-110); CO2 25 mMol/L (22-32); CREATININE 0.7 mg/dL (0.6-1.3); POTASSIUM 3.8 mMol/L (3.7-5.1); SODIUM 138 mMol/L (135-145)
[2017-02-15 05:42] LABS: HEMATOCRIT 25.9 % (37.0-53.0); HEMOGLOBIN 8.4 g/dL (12.0-17.0); MCH 27.8 pg (27.0-34.0); MCHC 32.4 gm/dL (32.0-36.5); MCV 85.8 fl (83.0-98.0); MPV 9.5 fl (9.4-12.4); PLATELET COUNT 768 K/uL (150-450); RBC 3.02 M/uL (4.00-6.00); RDW-CV 14.3 % (11.9-14.6)
[2017-02-15 06:26] LABS: ABSOLUTE NEUTROPHIL CT (ANC) 10.9 K/uL (1.4-9.0); LYMPHOCYTE # 1.1 K/uL (0.8-4.0); LYMPHOCYTE % 8 %; MONOCYTE # 1.8 K/uL (0.0-1.0); SEGMENTED NEUTROPHIL # 10.9 K/uL (1.4-9.0); SEGMENTED NEUTROPHIL % 78 %
[2017-02-16 04:49] LABS: HEMATOCRIT 27.1 % (37.0-53.0); HEMOGLOBIN 8.8 g/dL (12.0-17.0); MCH 27.6 pg (27.0-34.0); MCHC 32.5 gm/dL (32.0-36.5); MPV 9.2 fl (9.4-12.4); PLATELET COUNT 785 K/uL (150-450); RBC 3.19 M/uL (4.00-6.00); RDW-CV 14.1 % (11.9-14.6); WBC 13.6 K/uL (4.0-11.0)
[2017-02-16 05:24] LABS: ABSOLUTE NEUTROPHIL CT (ANC) 10.6 K/uL (1.4-9.0); BANDED NEUTROPHIL # 1.6 K/uL (0.0-0.1); BANDED NEUTROPHILS % 12 %; LYMPHOCYTE # 1.5 K/uL (0.8-4.0); LYMPHOCYTE % 11 %; MONOCYTE # 0.5 K/uL (0.0-1.0); SEGMENTED NEUTROPHIL % 66 %
[2017-02-16] MEDS ORDERED: IMURAN50 MG PO (10:47)
[2017-02-16] MEDS ORDERED: RYTHMOL150 MG PO (10:48)
[2017-02-16] MEDS ORDERED: NORCO 5-325 TA1 EACH PO (10:49)
== END 2017-02-16 12:10 | disposition disaster alternative care site (69) | DRG 329 ==
LOC: GMED 13:49 → GMSU 16:03 → GPCU 16:03 → GMSU 21:28 → GPCU 02-06 17:59
PROVIDERS: Family Medicine; Physician Assistant; Physician Assistant Medical; Surgery; ADMIT Surgery
DX: K63.1 Perforation of intestine (nontraumatic) (principal); K65.9 Peritonitis, unspecified; K65.1 Peritoneal abscess; J90 Pleural effusion, not elsewhere classified; I48.0 Paroxysmal atrial fibrillation; K63.0 Abscess of intestine; K56.7 Ileus, unspecified; K50.00 Crohn's disease of small intestine without complications; Z79.899 Other long term (current) drug therapy; R00.0 Tachycardia, unspecified; B96.89 Other specified bacterial agents as the cause of diseases classified elsewhere
CPT/HCPCS: C1751; C9113; J0131; J0282; J1170; J1650; J1720; J2060; J2270; J2405; J2543; J3010; J3480; J7030; J7040; J7042; J7050; J7060; J7120; J7500; Q9967

== ENCOUNTER → 2017-02-04 | Outpatient (CLI) | payer OTHER | END | disposition disaster alternative care site (69) | LOC: GAMB 13:25 | DX: R10.9 Unspecified abdominal pain (principal); K50.90 Crohn's disease, unspecified, without complications; R11.0 Nausea | CPT/HCPCS: A0425; A0427; J2405; J3010; J7030 ==

== ENCOUNTER → 2017-03-15 | Outpatient (CLI) | payer OTHER | END | disposition disaster alternative care site (69) | LOC: GRAD 13:44 | DX: K50.90 Crohn's disease, unspecified, without complications (principal); J90 Pleural effusion, not elsewhere classified; R91.8 Other nonspecific abnormal finding of lung field; Z90.49 Acquired absence of other specified parts of digestive tract | CPT/HCPCS: Q9967 ==

== ENCOUNTER → 2017-04-05 | Outpatient (CLI) | payer OTHER | END | disposition disaster alternative care site (69) | LOC: GRAD 07:43 | DX: Z98.0 Intestinal bypass and anastomosis status (principal); K63.89 Other specified diseases of intestine; Z90.49 Acquired absence of other specified parts of digestive tract ==